=== PATIENT | male | born 1955 | race Caucasian/White ===

== ENCOUNTER 2016-11-07 21:22 | Inpatient (IN) | payer BC ==
[~2016-11-07] VITALS: Ht 188 cm; Wt 86.6 kg
--- NOTE | ~2016-11-07 | DS ---
Discharge Summary [facility] [address] [facility] [place]. [address] NAME: ADAM ALBERTO : 55 STATUS : DIS IN PAT#: [id number] AGE: 61 ADM/REG DATE : 11/07/16 MR#: [id number] REPORT SERV DATE: 11/16/16 DICTATED BY: KHRIS CHAMPAGNE DATE: 11/15/16 REPORT STATUS : Draft TRANSCRIBED BY: MODL DATE: 11/15/16 ADMISSION DATE: 11/07/2016 DISCHARGE DATE: 11/15/2016 DISCHARGE DIAGNOSES: 1. Acute pulmonary embolism. 2. Left upper extremity deep venous thrombosis. 3. Chronic obstructive pulmonary disease exacerbation. 4. Community-acquired pneumonia. 5. Volume overload. 6. Non-small cell lung cancer. 7. Hypertension. 8. History of right upper extremity deep venous thrombosis. CONSULTANTS: Rad Qureshi M.D. of Oncology. PROCEDURES: None. HOSPITAL COURSE: This is a 61-year-old gentleman who was admitted to the hospital with an acute PE and left upper extremity DVT as well as hypoxic respiratory failure. For details, please refer to excellent H and P dictated by Dr. Mohinder Mccartney. In summary, the patient was admitted and was treated with therapeutic Lovenox as well as oxygen and bronchodilator therapy. The patient was also treated with IV antibiotics, and later also treated with IV steroids and some diuresis. The patient did not have any acute complications during this hospital stay, but he did have prolonged course of oxygen taper. The patient at one point required up to 10 L and he was slowly weaned down to 3 L by the day of discharge. Also by the day of discharge, the patient had already completed one week course of IV antibiotics with normalization of his white blood cell count and procalcitonin level. The patient was transitioned to Eliquis on discharge from therapeutic Lovenox, and the patient was also discharged home with a short course of Medrol Dosepak as well as albuterol inhaler, Symbicort inhaler, and a nebulizer. The patient is now being discharged home with home health and home oxygen at 4 L. The patient will have a very close outpatient followup. This is in part decision made from the patient's wishes to be discharged as soon as possible, and he has always been very much eager to return home. In any case, the patient has remained stable past couple of days and thus it is felt still reasonable for the patient to be discharged home. DISPOSITION: Home with home health and home oxygen. DISCHARGE MEDICATIONS: 1. Medrol Dosepak. 2. Albuterol inhaler. 3. Symbicort inhaler. 4. DuoNeb nebulizer. 5. Eliquis. Discharge Summary [address] [address] NAME: ADAM ALBERTO : 55 STATUS : DIS IN PAT#: [id number] AGE: 61 ADM/REG DATE : 11/07/16 MR#: [id number] REPORT SERV DATE: 11/16/16 DICTATED BY: KHRIS CHAMPAGNE DATE: 11/15/16 REPORT STATUS : Draft TRANSCRIBED BY: LOTUS DATE: 11/15/16 FOLLOWUP: Please follow up with PCP in the next one to two weeks. A total of 35 minutes spent in coordinating this patient's discharge today. DENISE/LOTUS Khris Champagne MD / [id number] CC: MD Mckenna Fernandez D.O. F.A.C.P.
--- NOTE | ~2016-11-07 | HP ---
History And Physical [place] [address] [facility] [place]. [address] NAME: ADAM ALBERTO : 55 STATUS : ADM Ashley PAT#: [id number] AGE: 61 ADM/REG DATE : 11/07/16 MR#: [id number] REPORT SERV DATE: 11/08/16 DICTATED BY: MOHINDER QUINTANA DATE: 11/08/16 REPORT STATUS : Draft TRANSCRIBED BY: MODL DATE: 11/08/16 DATE OF ADMISSION: 11/07/2016 CHIEF COMPLAINT: Left arm pain and left chest pain. HISTORY OF PRESENT ILLNESS: This is a 61-year-old male with a history of squamous cell lung cancer, status post chemotherapy and radiation therapy; history of COPD; hypertension; history of DVT of the right upper extremity, who presents to the emergency room at [facility] with the above-mentioned complaint. History is obtained from the patient, his family who is at bedside and reviewing data available on the [employer] system. According to the patient and his , he had been in his usual state of health until about a week or so ago when he did not feel well and was lying in bed for couple of days. Since then, he had been back to work as well without any problems. During the weekends, he works another job also and he had done that. Saturday or Saturday when he woke up, he had pain in his left upper extremity and this persisted through the day. He went to work, but was unable to perform anything there due to the pain and returned home and lay in bed. This continued into Saturday, but by Saturday, he had started having pain in his chest on the left side, which is more with deep inspiration or coughing. He also started getting shortness of breath by this time. Finally, they decided to come to the emergency room to be evaluated. In the emergency room, initial workup including CTA of the chest was done, which showed a left lower lobe pulmonary artery embolism along with left upper extremity DVT as well. Hospitalist Service is asked to admit him for further evaluation and treatment. At the time of my evaluation, he denied any palpitations. He did have chest pain as described above, which is reproducible, especially with deep inspiration and coughing. He denied any orthopnea. He did have a small cough, but without any expectoration of phlegm or hemoptysis. He has no recent history of fevers, night sweats, or weight loss. He has not had any recent falls or loss of consciousness. No history of trauma to the area. He denied any fevers, chills, nausea, vomiting, diarrhea, or dysuria. He denies any hematemesis, hematochezia, or hematuria. No other history of recent travel or exposures other than those mentioned above. PAST MEDICAL HISTORY: Significant for history of hypertension, COPD, and squamous cell lung cancer as described above. SOCIAL HISTORY: He has a long history of smoking and continues to do so. He denies alcohol use or recreational drug use. FAMILY HISTORY: Noncontributory. MEDICATIONS: His medications at home were reviewed by me in the chart today and reordered by me. History And Physical [address] [address] NAME: ADAM ALBERTO : 55 STATUS : ADM Ashley PAT#: [id number] AGE: 61 ADM/REG DATE : 11/07/16 MR#: [id number] REPORT SERV DATE: 11/08/16 DICTATED BY: MOHINDER QUINTANA DATE: 11/08/16 REPORT STATUS : Draft TRANSCRIBED BY: LOTUS DATE: 11/08/16 REVIEW OF SYSTEMS: As in history of present illness. All other systems were reviewed in detail and are quite unremarkable. PHYSICAL EXAMINATION: GENERAL: This is a pleasant 61-year-old, not in any acute distress. HEENT: His head is atraumatic, normocephalic. He is alert, awake, and oriented to time, place, and person. Pupils are equal, reacting to light and accommodating. External ocular muscles are intact. Membranes are moist and pink. Sclerae are nonicteric. NECK: Supple with no jugular venous distention, lymphadenopathy, or thyromegaly. LUNGS: Clear to auscultation with no wheezes, rubs, or crackles. HEART: Heart sounds were regular with no murmurs, rubs, or gallops. ABDOMEN: Soft and nontender. Bowel sounds are present. EXTREMITIES: Show no cyanosis, clubbing, or edema. NEURO: Grossly intact. No focal sensory or motor deficits. Higher functions appear intact. Gait is not examined. VITAL SIGNS: His vital signs today show a temperature of 99.1, pulse 132, respirations 20 a minute, and blood pressure upon arrival was 121/72. Oxygen saturations were 93% breathing 2 to 3 L via nasal cannula. LABORATORY DATA: Reviewed on the [employer] system showed a normal CMP with a blood glucose of 110. His troponin was 0.02 and CBC showed an elevated white blood cell count of 13,700; otherwise, normal hemoglobin, hematocrit, and platelet count. His prothrombin time was 15.8 with an INR of 1.3 today. Films of the CTA of the chest were reviewed by me on the PACS today and interpreted by me, per my interpretation and reviewing the official radiology report, there is left lower lobe pulmonary embolism seen along with the left upper extremity DVT. A 12-lead EKG done in the emergency room was reviewed and interpreted by me. There is sinus tachycardia at a rate of 132 per minute. IMPRESSION: 1. Acute pulmonary embolism. 2. Left upper extremity deep venous thrombosis. 3. Chronic obstructive pulmonary disease. 4. Squamous cell lung cancer. 5. Hypertension. 6. History of right upper extremity deep venous thrombosis. PLAN: We will admit Mr. Alberto to the Hospitalist Service with cardiac telemetry over a 24- hour observation period. We will start him on low molecular weight heparin in a therapeutic dose subcutaneously twice daily, first dose given now. We will re-evaluate him in the morning and switch him to an oral agent when appropriate. We will maximize his bronchodilator treatments at this time. Continue supplemental oxygen therapy and continue all other home medications as well. I have discussed the above plans with the patient and History And Physical [address] [address] NAME: ADAM ALBERTO : 55 STATUS : ADM Ashley PAT#: [id number] AGE: 61 ADM/REG DATE : 11/07/16 MR#: [id number] REPORT SERV DATE: 11/08/16 DICTATED BY: MOHINDER QUINTANA DATE: 11/08/16 REPORT STATUS : Draft TRANSCRIBED BY: LOTUS DATE: 11/08/16 his . Questions were answered and they are agreeable to the above recommendations. Hospitalist Service will be following him during his stay here. /LTOUS Mohinder Quintana M.D. / [phone] CC: MD Mckenna Cohen D.O. F.A.C.P.
[~2016-11-07 21:22] MED LIST: NORV5 PO; PROTONIX PO
[2016-11-07 22:19] LABS: BASOPHILS 0.1 %; BASOPHILS ABSOLUTE 0.01 10/3/uL (0.0-0.16); EOSINOPHILS 0.4 %; EOSINOPHILS ABSOLUTE 0.06 10/3/uL (0.0-0.53); HEMATOCRIT 43.7 % (40.0-51.0); HEMOGLOBIN 15.4 g/dL (13.6-17.8); IMMATURE GRANULOCYTES 0.4 %; IMMATURE GRANULOCYTES ABSOLUTE 0.05 10/3/uL (0.0-0.11); LYMPHOCYTES ABSOLUTE 0.96 10/3/uL (0.67-4.30); MANUAL DIFF NO %; MEAN CORPUS HGB CONC 35.2 g/dL (32.0-36.0); MEAN CORPUSCULAR HEMOGLOB 32.5 pg (26.0-34.0); MEAN CORPUSCULAR VOLUME 92.2 fL (80-100); MEAN PLATELET VOLUME 9.5 fL (9.2-13.0); MONOCYTES 6.8 %; MONOCYTES ABSOLUTE 0.93 10/3/uL (0.21-1.20); NEUTROPHILS 85.3 %; NEUTROPHILS ABSOLUTE 11.64 10/3/uL (2.02-8.40); PLATELET COUNT 152 10/3/uL (150-400); RBC DISTRIBUTION WIDTH 13.3 % (12.0-16.0); RED CELL COUNT 4.74 10/6/uL (4.7-6.1); WHITE BLOOD CELLS 13.7 10/3/uL (4.5-10.5)
[2016-11-07 22:30] LABS: INTERNATIONAL NORMAL RATI 1.3 UNITS (-); PARTIAL THROMBO TIME 36.4 SEC (22.5-37.2); PROTIME (NOT ORD) 15.8 SEC (12.0-14.5)
[2016-11-07 22:35] LABS: BUN (BLOOD UREA NITROGEN) 13 MG/DL (6-23); CALCIUM, SERUM 9.1 MG/DL (8.5-10.4); CHEST PAIN PROFILE TAT 0 Hrs 20 Mins; CHLORIDE, SERUM 100 MMOL/L (96-112); CO2 (CARBON DIOXIDE) 27 MMOL/L (24-34); CREATININE 0.86 MG/DL (0.70-1.30); GFR AFRICAN AMERICAN 108 ML/MIN (>=60); GFR NON AFRICAN AMERICAN 94 ML/MIN (>=60); GLUCOSE, SERUM 110 MG/DL (60-99); POTASSIUM, SERUM 3.8 MMOL/L (3.5-5.3); SODIUM, SERUM 137 MMOL/L (135-148); TROPONIN I <0.02 NG/ML (<0.05)
[2016-11-07] MEDS ORDERED: NORV5 PO (23:21)
[2016-11-07] MEDS ORDERED: HABIT21 TOP (23:22)
[2016-11-07] MEDS ORDERED: PROTONIX PO (23:22)
[2016-11-07] MEDS ORDERED: CELEBREX2 PO (23:22)
[2016-11-07] MEDS ORDERED: ACET500CAP PO (23:23)
[2016-11-08 06:05] LABS: BASOPHILS 0.1 %; BASOPHILS ABSOLUTE 0.01 10/3/uL (0.0-0.16); EOSINOPHILS 0.7 %; EOSINOPHILS ABSOLUTE 0.08 10/3/uL (0.0-0.53); HEMATOCRIT 39.8 % (40.0-51.0); IMMATURE GRANULOCYTES 0.4 %; IMMATURE GRANULOCYTES ABSOLUTE 0.05 10/3/uL (0.0-0.11); LYMPHOCYTES 8.1 %; LYMPHOCYTES ABSOLUTE 0.93 10/3/uL (0.67-4.30); MEAN CORPUS HGB CONC 35.2 g/dL (32.0-36.0); MEAN CORPUSCULAR HEMOGLOB 32.6 pg (26.0-34.0); MEAN CORPUSCULAR VOLUME 92.6 fL (80-100); MEAN PLATELET VOLUME 9.4 fL (9.2-13.0); MONOCYTES 7.7 %; MONOCYTES ABSOLUTE 0.88 10/3/uL (0.21-1.20); NEUTROPHILS ABSOLUTE 9.48 10/3/uL (2.02-8.40); PLATELET COUNT 151 10/3/uL (150-400); RBC DISTRIBUTION WIDTH 13.1 % (12.0-16.0); WHITE BLOOD CELLS 11.4 10/3/uL (4.5-10.5)
[2016-11-08 06:08] LABS: MANUAL DIFF NO %
[2016-11-08 06:15] LABS: BUN (BLOOD UREA NITROGEN) 12 MG/DL (6-23); CALCIUM, SERUM 8.3 MG/DL (8.5-10.4); CHLORIDE, SERUM 102 MMOL/L (96-112); CO2 (CARBON DIOXIDE) 24 MMOL/L (24-34); CREATININE 0.67 MG/DL (0.70-1.30); GFR AFRICAN AMERICAN 120 ML/MIN (>=60); GFR NON AFRICAN AMERICAN 104 ML/MIN (>=60); GLUCOSE, SERUM 106 MG/DL (60-99); PHOSPHORUS, SERUM 3.1 MG/DL (2.5-4.5); POTASSIUM, SERUM 3.4 MMOL/L (3.5-5.3); SODIUM, SERUM 135 MMOL/L (135-148)
[2016-11-10 10:21] LABS: BASOPHILS 0.1 %; BASOPHILS ABSOLUTE 0.01 10/3/uL (0.0-0.16); EOSINOPHILS 0.7 %; EOSINOPHILS ABSOLUTE 0.07 10/3/uL (0.0-0.53); HEMOGLOBIN 12.2 g/dL (13.6-17.8); IMMATURE GRANULOCYTES 0.2 %; IMMATURE GRANULOCYTES ABSOLUTE 0.02 10/3/uL (0.0-0.11); LYMPHOCYTES ABSOLUTE 0.48 10/3/uL (0.67-4.30); MEAN CORPUS HGB CONC 34.5 g/dL (32.0-36.0); MEAN CORPUSCULAR HEMOGLOB 31.9 pg (26.0-34.0); MEAN CORPUSCULAR VOLUME 92.7 fL (80-100); MEAN PLATELET VOLUME 9.3 fL (9.2-13.0); MONOCYTES 5.1 %; MONOCYTES ABSOLUTE 0.49 10/3/uL (0.21-1.20); NEUTROPHILS 88.9 %; NEUTROPHILS ABSOLUTE 8.53 10/3/uL (2.02-8.40); PLATELET COUNT 137 10/3/uL (150-400); RBC DISTRIBUTION WIDTH 13.1 % (12.0-16.0); RED CELL COUNT 3.82 10/6/uL (4.7-6.1); WHITE BLOOD CELLS 9.6 10/3/uL (4.5-10.5)
[2016-11-10 10:24] LABS: HEMATOCRIT 35.4 % (40.0-51.0); MANUAL DIFF NO %
[2016-11-11 05:18] LABS: BASOPHILS 0.1 %; BASOPHILS ABSOLUTE 0.01 10/3/uL (0.0-0.16); EOSINOPHILS 1.6 %; EOSINOPHILS ABSOLUTE 0.14 10/3/uL (0.0-0.53); IMMATURE GRANULOCYTES 0.1 %; IMMATURE GRANULOCYTES ABSOLUTE 0.01 10/3/uL (0.0-0.11); LYMPHOCYTES 5.3 %; LYMPHOCYTES ABSOLUTE 0.47 10/3/uL (0.67-4.30); MEAN CORPUS HGB CONC 34.6 g/dL (32.0-36.0); MEAN CORPUSCULAR HEMOGLOB 32.1 pg (26.0-34.0); MEAN CORPUSCULAR VOLUME 92.7 fL (80-100); MEAN PLATELET VOLUME 9.2 fL (9.2-13.0); MONOCYTES 6.5 %; MONOCYTES ABSOLUTE 0.58 10/3/uL (0.21-1.20); NEUTROPHILS 86.4 %; NEUTROPHILS ABSOLUTE 7.73 10/3/uL (2.02-8.40); PLATELET COUNT 163 10/3/uL (150-400); RBC DISTRIBUTION WIDTH 12.9 % (12.0-16.0); RED CELL COUNT 3.43 10/6/uL (4.7-6.1); WHITE BLOOD CELLS 8.9 10/3/uL (4.5-10.5)
[2016-11-11 05:19] LABS: HEMATOCRIT 31.8 % (40.0-51.0); MANUAL DIFF NO %
[2016-11-11 05:34] LABS: BUN (BLOOD UREA NITROGEN) 13 MG/DL (6-23); CALCIUM, SERUM 8.1 MG/DL (8.5-10.4); CHLORIDE, SERUM 102 MMOL/L (96-112); CO2 (CARBON DIOXIDE) 26 MMOL/L (24-34); CREATININE 0.51 MG/DL (0.70-1.30); GFR AFRICAN AMERICAN 134 ML/MIN (>=60); GFR NON AFRICAN AMERICAN 116 ML/MIN (>=60); GLUCOSE, SERUM 91 MG/DL (60-99); POTASSIUM, SERUM 3.2 MMOL/L (3.5-5.3); SODIUM, SERUM 138 MMOL/L (135-148)
[2016-11-12 07:08] LABS: BASOPHILS 0.1 %; BASOPHILS ABSOLUTE 0.01 10/3/uL (0.0-0.16); EOSINOPHILS 0.8 %; EOSINOPHILS ABSOLUTE 0.07 10/3/uL (0.0-0.53); HEMATOCRIT 34.1 % (40.0-51.0); IMMATURE GRANULOCYTES 0.4 %; IMMATURE GRANULOCYTES ABSOLUTE 0.03 10/3/uL (0.0-0.11); LYMPHOCYTES 8.8 %; LYMPHOCYTES ABSOLUTE 0.73 10/3/uL (0.67-4.30); MEAN CORPUS HGB CONC 35.2 g/dL (32.0-36.0); MEAN CORPUSCULAR HEMOGLOB 32.3 pg (26.0-34.0); MEAN CORPUSCULAR VOLUME 91.7 fL (80-100); MEAN PLATELET VOLUME 8.8 fL (9.2-13.0); MONOCYTES ABSOLUTE 0.42 10/3/uL (0.21-1.20); NEUTROPHILS 84.9 %; NEUTROPHILS ABSOLUTE 7.06 10/3/uL (2.02-8.40); PLATELET COUNT 167 10/3/uL (150-400); RBC DISTRIBUTION WIDTH 12.7 % (12.0-16.0); RED CELL COUNT 3.72 10/6/uL (4.7-6.1); WHITE BLOOD CELLS 8.3 10/3/uL (4.5-10.5)
[2016-11-12 07:17] LABS: MANUAL DIFF NO %
[2016-11-13 06:38] LABS: BASOPHILS 0.1 %; BASOPHILS ABSOLUTE 0.01 10/3/uL (0.0-0.16); EOSINOPHILS 1.7 %; EOSINOPHILS ABSOLUTE 0.13 10/3/uL (0.0-0.53); HEMATOCRIT 34.8 % (40.0-51.0); HEMOGLOBIN 12.1 g/dL (13.6-17.8); IMMATURE GRANULOCYTES 0.3 %; IMMATURE GRANULOCYTES ABSOLUTE 0.02 10/3/uL (0.0-0.11); LYMPHOCYTES 8.2 %; LYMPHOCYTES ABSOLUTE 0.63 10/3/uL (0.67-4.30); MEAN CORPUS HGB CONC 34.8 g/dL (32.0-36.0); MEAN CORPUSCULAR HEMOGLOB 32.2 pg (26.0-34.0); MEAN CORPUSCULAR VOLUME 92.6 fL (80-100); MEAN PLATELET VOLUME 9.1 fL (9.2-13.0); MONOCYTES 7.1 %; MONOCYTES ABSOLUTE 0.55 10/3/uL (0.21-1.20); NEUTROPHILS 82.6 %; NEUTROPHILS ABSOLUTE 6.39 10/3/uL (2.02-8.40); PLATELET COUNT 195 10/3/uL (150-400); RBC DISTRIBUTION WIDTH 12.7 % (12.0-16.0); RED CELL COUNT 3.76 10/6/uL (4.7-6.1); WHITE BLOOD CELLS 7.7 10/3/uL (4.5-10.5)
[2016-11-13 06:41] LABS: MANUAL DIFF NO %
[2016-11-14 05:00] LABS: BASOPHILS 0 %; EOSINOPHILS 0 %; HEMATOCRIT 33.2 % (40.0-51.0); HEMOGLOBIN 11.7 g/dL (13.6-17.8); IMMATURE GRANULOCYTES 0.3 %; IMMATURE GRANULOCYTES ABSOLUTE 0.03 10/3/uL (0.0-0.11); LYMPHOCYTES 5.2 %; MEAN CORPUS HGB CONC 35.2 g/dL (32.0-36.0); MEAN CORPUSCULAR HEMOGLOB 31.8 pg (26.0-34.0); MEAN CORPUSCULAR VOLUME 90.2 fL (80-100); MONOCYTES 2.5 %; MONOCYTES ABSOLUTE 0.24 10/3/uL (0.21-1.20); NEUTROPHILS ABSOLUTE 8.93 10/3/uL (2.02-8.40); PLATELET COUNT 200 10/3/uL (150-400); RBC DISTRIBUTION WIDTH 12.8 % (12.0-16.0); RED CELL COUNT 3.68 10/6/uL (4.7-6.1); WHITE BLOOD CELLS 9.7 10/3/uL (4.5-10.5)
[2016-11-14 05:01] LABS: MANUAL DIFF NO %
[2016-11-15 05:42] LABS: BASOPHILS 0 %; EOSINOPHILS 0 %; HEMATOCRIT 33.7 % (40.0-51.0); HEMOGLOBIN 11.7 g/dL (13.6-17.8); IMMATURE GRANULOCYTES 0.2 %; IMMATURE GRANULOCYTES ABSOLUTE 0.03 10/3/uL (0.0-0.11); LYMPHOCYTES 5.4 %; LYMPHOCYTES ABSOLUTE 0.66 10/3/uL (0.67-4.30); MEAN CORPUS HGB CONC 34.7 g/dL (32.0-36.0); MEAN CORPUSCULAR HEMOGLOB 31.8 pg (26.0-34.0); MEAN CORPUSCULAR VOLUME 91.6 fL (80-100); MEAN PLATELET VOLUME 9.6 fL (9.2-13.0); MONOCYTES 3.2 %; MONOCYTES ABSOLUTE 0.39 10/3/uL (0.21-1.20); NEUTROPHILS 91.2 %; NEUTROPHILS ABSOLUTE 11.22 10/3/uL (2.02-8.40); PLATELET COUNT 195 10/3/uL (150-400); RBC DISTRIBUTION WIDTH 12.9 % (12.0-16.0); RED CELL COUNT 3.68 10/6/uL (4.7-6.1); WHITE BLOOD CELLS 12.3 10/3/uL (4.5-10.5)
[2016-11-15 05:44] LABS: MANUAL DIFF NO %
[2016-11-15 05:51] LABS: CALCIUM, SERUM 8.7 MG/DL (8.5-10.4); CHLORIDE, SERUM 102 MMOL/L (96-112); CREATININE 0.62 MG/DL (0.70-1.30); GFR AFRICAN AMERICAN 124 ML/MIN (>=60); GFR NON AFRICAN AMERICAN 107 ML/MIN (>=60); SODIUM, SERUM 141 MMOL/L (135-148)
[2016-11-15 05:53] LABS: BUN (BLOOD UREA NITROGEN) 21 MG/DL (6-23); CO2 (CARBON DIOXIDE) 32 MMOL/L (24-34); GLUCOSE, SERUM 129 MG/DL (60-99); POTASSIUM, SERUM 2.9 MMOL/L (3.5-5.3)
[2016-11-15] MEDS ORDERED: PROAIR HFA INH (10:06)
[2016-11-15] MEDS ORDERED: SYMBICORT 160/41 INH INH (10:09)
[2016-11-15] MEDS ORDERED: DUONEB INH (10:13)
[2016-11-15] MEDS ORDERED: MEDROLPAK4 PO (10:14)
[2016-11-15] MEDS ORDERED: ELIQUIS 5 MG TAB5 MG PO ×2 (10:15→10:16)
== END 2016-11-15 15:21 | disposition home health service (06) | DRG 175 ==
LOC: ER 21:22 → 7NO 21:45 → ER 11-08 01:36 → 7NO 11-08 01:36
PROVIDERS: Emergency Medicine; Internal Medicine; Internal Medicine Pulmonary Disease
DX: I26.99 Other pulmonary embolism without acute cor pulmonale (principal); J96.01 Acute respiratory failure with hypoxia; C34.90 Malignant neoplasm of unspecified part of unspecified bronchus or lung; J18.9 Pneumonia, unspecified organism; J44.1 Chronic obstructive pulmonary disease with (acute) exacerbation; I82.622 Acute embolism and thrombosis of deep veins of left upper extremity; I10 Essential (primary) hypertension; E87.70 Fluid overload, unspecified; F17.210 Nicotine dependence, cigarettes, uncomplicated; Z92.21 Personal history of antineoplastic chemotherapy; Z86.718 Personal history of other venous thrombosis and embolism; Z92.3 Personal history of irradiation
CPT/HCPCS: 71010; 71020; 71275; 80048; 82962; 83735; 84100; 84145; 84484; 85025; 85610; 85730; 93005; 94640; A9270-GY; C8929; J0456; J1170; J2405; J2920; Q9957; Q9967